=== PATIENT | female | born 1955 | race African-American/Black ===

== ENCOUNTER 2016-05-15 16:18 | Inpatient (IN) | payer MEDICAID ==
[~2016-05-15] VITALS: Ht 157.5 cm; Wt 68.5 kg
[~2016-05-15 16:18] MED LIST: CARV3.1242 PO; FURO-151 PO; INSU3INS6 SUBCUT; SPIR25TA4 PO
[2016-05-15] MEDS ORDERED: FUROSEMIDE 40MG/4ML VIAL IV STA (17:15)
[2016-05-15] MEDS ORDERED: NITROGLYCERIN OINT 1GM/INCH UDPKT TD STA (17:15)
[2016-05-15 17:36] LABS: BASOPHILS % 1.8 % (0.0-2.0); EOSINOPHILS % 1.5 % (0.0-5.0); HEMATOCRIT. 36.2 % (36.0-48.0); HEMOGLOBIN. 11.4 g/dL (12.0-16.0); LYMPHOCYTES % 10.2 % (20.0-50.0); MEAN CORPUSCULAR HEMOGLOBIN 27.1 pg (28.0-32.0); MEAN CORPUSCULAR HGB CONC 31.6 g/dL (31.0-37.0); MEAN CORPUSCULAR VOLUME 85.8 fL (81.0-99.0); MEAN PLATELET VOLUME 8.8 fl (7.4-10.4); MONOCYTES % 9.1 % (2.0-8.0); NEUTROPHILS % 77.4 % (40.0-76.0); PLATELET 443 x1000/uL (130-400); RED BLOOD CELL COUNT 4.21 mill/uL (4.2-5.4); RED CELL DISTRIBUTION WIDTH 17.4 % (11.6-14.6); WHITE BLOOD COUNT 9.6 x1000/uL (4.5-11.0)
[2016-05-15 17:41] LABS: CHLORIDE 97 mEq/L (98-107); INDEX HEMOLYSI 1 (1-3); INDEX ICTERIC 1 (1-4); INDEX LIPEMIC 1 (1-3)
[2016-05-15 17:44] LABS: INR 1.1; PROTHROMBIN TIME 11.7 sec
[2016-05-15 17:47] LABS: ALANINE AMINOTRANSFERASE 34 IU/L (13-61); ANION GAP 12; CALCIUM 8.2 mg/dL (8.5-10.1); CARBON DIOXIDE 32 mEq/L (21-32); UREA NITROGEN BLOOD 17 mg/dL (7-21); eGFR > 60 mL/min (>60)
[2016-05-15 17:52] LABS: NT PRO B-TYPE NATRIURETIC PEP 1499 pg/mL (5-125); TROPONIN I < 0.02 ng/mL (0.00-0.04)
[2016-05-15 18:06] LABS: CLARITY URINE CLEAR (CLEAR); COLOR URINE DARK YELLOW (YELLOW); GLUCOSE URINE 3+ (NEGATIVE); KETONES URINE NEGATIVE (NEGATIVE); LEUKOCYTE ESTERASE URINE NEGATIVE (NEGATIVE); NITRITE URINE NEGATIVE (NEGATIVE); OCCULT BLOOD URINE 2+ (NEGATIVE); PROTEIN URINE 3+ (NEGATIVE); SPECIFIC GRAVITY URINE 1.023 (1.005-1.030)
[2016-05-15 18:19] LABS: BACTERIA URINE TRACE; RBC URINE 0-2 /hpf (0-2); SQUAMOUS EPITHELIAL CELL URINE FEW /lpf (RARE/1+); WBC URINE 0-2 /hpf (0-2)
[2016-05-15] MEDS ORDERED: CEFTRIAXONE 1 G PREMIX 50 ML IV ONE (20:00)
[2016-05-15] MEDS ORDERED: AZITHROMYCIN 500 MG in DEXT 5% WATER 250 ML IV SCH (20:00)
[2016-05-15 22:35] LABS: BG BASE EXCESS 4.6 mmol/L (-2.0-2.0); BG CARBOXYHEMOGLOBIN 1.6 % (0.5-1.5); BG DEOXYHEMOGLOBIN 16.4 % (0.0-5.0); BG FRACTION INSPIRED OXYGEN 21; BG HCO3 ACT 28.9 mmol/L (22.0-26.0); BG METHEMOGLOBIN 0.2 % (0.0-1.5); BG OXYGEN SATURATION 83.3 % (92.0-98.5); BG OXYHEMOGLOBIN 81.8 % (94.0-97.0); BG PCO2 41.7 mmHg (35.0-45.0); BG PH 7.458 (7.350-7.450); BG PO2 45.2 mmHg (75.0-100.0); BG SAMPLE SITE LEFT BRACHIAL; BG TOTAL HEMOGLOBIN 11.9 g/dL (12.0-18.0); BG VENT MODE ROOM AIR
[2016-05-16 00:45] VITALS: BP 134/90
[2016-05-16] MEDS ORDERED: DEXTROSE 50% WATER 50ML SYRINGE IV PRN (01:00)
[2016-05-16 04:00] VITALS: BP 125/78
[2016-05-16 06:57] LABS: BASOPHILS % 1.6 % (0.0-2.0); EOSINOPHILS % 1.6 % (0.0-5.0); HEMATOCRIT. 32.8 % (36.0-48.0); HEMOGLOBIN. 10.3 g/dL (12.0-16.0); MEAN CORPUSCULAR HEMOGLOBIN 26.7 pg (28.0-32.0); MEAN CORPUSCULAR HGB CONC 31.4 g/dL (31.0-37.0); MEAN CORPUSCULAR VOLUME 84.9 fL (81.0-99.0); MONOCYTES % 11.6 % (2.0-8.0); NEUTROPHILS % 72.2 % (40.0-76.0); PLATELET 433 x1000/uL (130-400); RED BLOOD CELL COUNT 3.86 mill/uL (4.2-5.4); RED CELL DISTRIBUTION WIDTH 17.5 % (11.6-14.6); WHITE BLOOD COUNT 8.9 x1000/uL (4.5-11.0)
[2016-05-16] MEDS: BLOOD SUGAR DIAGNOSTIC STRIP TEST SCH ×4 (07:20→21:27)
[2016-05-16 07:28] LABS: CALCIUM 8.2 mg/dL (8.5-10.1); CHLORIDE 98 mEq/L (98-107); INDEX HEMOLYSI 1 (1-3); INDEX ICTERIC 1 (1-4); INDEX LIPEMIC 1 (1-3)
[2016-05-16 07:34] LABS: ALANINE AMINOTRANSFERASE 28 IU/L (13-61); ALBUMIN 1.9 g/dL (3.4-5.0); ANION GAP 12; CARBON DIOXIDE 31 mEq/L (21-32); UREA NITROGEN BLOOD 19 mg/dL (7-21); eGFR > 60 mL/min (>60)
[2016-05-16 08:00] VITALS: BP 161/100
[2016-05-16] MEDS: ASPIRIN 81MG TABLET PO SCH (08:36)
[2016-05-16] MEDS: ENOXAPARIN 40MG/0.4ML SYR SUBCUT SCH (08:38)
[2016-05-16] MEDS ORDERED: POTASSIUM CHLORIDE 10MEQ TABLET SR PO SCH (09:00)
[2016-05-16] MEDS ORDERED: FUROSEMIDE 20MG/2ML VIAL IVP SCH (09:00)
[2016-05-16] MEDS ORDERED: SPIRONOLACTONE 25MG TABLET PO SCH (09:15)
[2016-05-16] MEDS: SPIRONOLACTONE 25MG TABLET PO SCH (10:00)
[2016-05-16 12:00] VITALS: BP 132/92
[2016-05-16] MEDS: INSULIN LISPRO 100 UNITS/ML SUBCUT SCH ×4 (13:00→21:26)
[2016-05-16 14:25] LABS: HEPATITIS B SURFACE ANTIGEN NEGATIVE
[2016-05-16 14:51] LABS: HEPATITIS C VIR.AB 0.16 INDEXVAL (0.00-0.80)
[2016-05-16 14:52] LABS: HEPATITIS B CORE AB IGM NEGATIVE
[2016-05-16 14:54] LABS: HEPATITIS A AB IGM NEGATIVE (NEGATIVE)
[2016-05-16 17:00] VITALS: BP 144/94
[2016-05-16] MEDS: FUROSEMIDE 20MG/2ML VIAL IVP SCH (17:00)
[2016-05-16] MEDS ORDERED: HEPARIN SODIUM 1,000 UNIT/1ML VIAL IV NR (18:00)
[2016-05-16] MEDS: CARVEDILOL 3.125 MG TABLET PO SCH (21:23)
[2016-05-16] MEDS: INSULIN DETEMIR UD 100 UNITS/ML SYR SUBCUT SCH (21:27)
[2016-05-17] VITALS: BP 126/73
[2016-05-17 04:00] VITALS: BP 127/72
[2016-05-17 05:26] LABS: BASOPHILS % 2.2 % (0.0-2.0); EOSINOPHILS % 2.3 % (0.0-5.0); HEMATOCRIT. 33.1 % (36.0-48.0); HEMOGLOBIN. 10.3 g/dL (12.0-16.0); MEAN CORPUSCULAR HEMOGLOBIN 26.6 pg (28.0-32.0); MEAN CORPUSCULAR HGB CONC 31.2 g/dL (31.0-37.0); MEAN CORPUSCULAR VOLUME 85.2 fL (81.0-99.0); MEAN PLATELET VOLUME 8.9 fl (7.4-10.4); NEUTROPHILS % 67.5 % (40.0-76.0); PLATELET 360 x1000/uL (130-400); RED BLOOD CELL COUNT 3.88 mill/uL (4.2-5.4); RED CELL DISTRIBUTION WIDTH 17.6 % (11.6-14.6); WHITE BLOOD COUNT 9.9 x1000/uL (4.5-11.0)
[2016-05-17 05:49] LABS: ANION GAP 14; CALCIUM 8.3 mg/dL (8.5-10.1); CARBON DIOXIDE 29 mEq/L (21-32); CHLORIDE 99 mEq/L (98-107); INDEX HEMOLYSI 1 (1-3); INDEX ICTERIC 1 (1-4); INDEX LIPEMIC 1 (1-3); UREA NITROGEN BLOOD 23 mg/dL (7-21); eGFR > 60 mL/min (>60)
[2016-05-17 05:50] LABS: TROPONIN I 0.04 ng/mL (0.00-0.04)
[2016-05-17] MEDS: BLOOD SUGAR DIAGNOSTIC STRIP TEST SCH ×4 (06:32→21:12)
[2016-05-17] MEDS: INSULIN LISPRO 100 UNITS/ML SUBCUT SCH ×4 (07:44→21:12)
[2016-05-17 07:58] VITALS: BP 125/77
[2016-05-17] MEDS: FUROSEMIDE 20MG/2ML VIAL IVP SCH ×2 (08:56→17:00)
[2016-05-17] MEDS: ENOXAPARIN 40MG/0.4ML SYR SUBCUT SCH (09:00)
[2016-05-17] MEDS: ASPIRIN 81MG TABLET PO SCH (09:00)
[2016-05-17] MEDS: SPIRONOLACTONE 25MG TABLET PO SCH (09:00)
[2016-05-17] MEDS: LISINOPRIL 2.5MG TABLET PO SCH (09:00)
[2016-05-17] MEDS: CARVEDILOL 3.125 MG TABLET PO SCH ×2 (09:00→21:10)
[2016-05-17 12:02] VITALS: BP 126/81
[2016-05-17 16:13] VITALS: BP 146/89
[2016-05-17] MEDS ORDERED: HEPARIN SODIUM 1,000 UNIT/1ML VIAL IV NR (17:15)
[2016-05-17 20:00] VITALS: BP 146/85
[2016-05-17] MEDS: INSULIN DETEMIR UD 100 UNITS/ML SYR SUBCUT SCH (21:12)
[2016-05-18] VITALS (7 sets, daily range): BP systolic 120–161; BP diastolic 70–91
[2016-05-18 06:00] LABS: BASOPHILS % 1.5 % (0.0-2.0); EOSINOPHILS % 2.2 % (0.0-5.0); HEMATOCRIT. 33.7 % (36.0-48.0); HEMOGLOBIN. 10.8 g/dL (12.0-16.0); LYMPHOCYTES % 15.2 % (20.0-50.0); MEAN CORPUSCULAR HEMOGLOBIN 27.1 pg (28.0-32.0); MEAN CORPUSCULAR VOLUME 84.7 fL (81.0-99.0); NEUTROPHILS % 69.1 % (40.0-76.0); PLATELET 309 x1000/uL (130-400); RED BLOOD CELL COUNT 3.98 mill/uL (4.2-5.4); RED CELL DISTRIBUTION WIDTH 17.8 % (11.6-14.6); WHITE BLOOD COUNT 8.7 x1000/uL (4.5-11.0)
[2016-05-18] MEDS: BLOOD SUGAR DIAGNOSTIC STRIP TEST SCH ×4 (06:32→21:11)
[2016-05-18 06:33] LABS: CHLORIDE 99 mEq/L (98-107); INDEX HEMOLYSI 1 (1-3); INDEX ICTERIC 1 (1-4); INDEX LIPEMIC 1 (1-3)
[2016-05-18 06:43] LABS: ANION GAP 14; CALCIUM 8.4 mg/dL (8.5-10.1); CARBON DIOXIDE 27 mEq/L (21-32); UREA NITROGEN BLOOD 28 mg/dL (7-21); eGFR > 60 mL/min (>60)
[2016-05-18] MEDS: INSULIN LISPRO 100 UNITS/ML SUBCUT SCH ×4 (07:50→21:10)
[2016-05-18 09:09] LABS: INR 1.1; PROTHROMBIN TIME 11.6 sec
[2016-05-18] MEDS: FUROSEMIDE 20MG/2ML VIAL IVP SCH ×2 (09:11→18:24)
[2016-05-18] MEDS: SPIRONOLACTONE 25MG TABLET PO SCH (09:46)
[2016-05-18] MEDS: LISINOPRIL 2.5MG TABLET PO SCH (09:46)
[2016-05-18] MEDS: CARVEDILOL 3.125 MG TABLET PO SCH ×2 (09:46→21:08)
[2016-05-18] MEDS: ENOXAPARIN 40MG/0.4ML SYR SUBCUT SCH (09:48)
[2016-05-18] MEDS ORDERED: HEPARIN SODIUM 1,000 UNIT/1ML VIAL IV NR (15:22)
[2016-05-18] MEDS: INSULIN DETEMIR UD 100 UNITS/ML SYR SUBCUT SCH (21:11)
[2016-05-19] VITALS: BP 114/57
[2016-05-19 04:00] VITALS: BP 113/71
[2016-05-19] MEDS: BLOOD SUGAR DIAGNOSTIC STRIP TEST SCH ×4 (06:20→21:38)
[2016-05-19 06:32] LABS: BASOPHILS % 1.9 % (0.0-2.0); EOSINOPHILS % 2.4 % (0.0-5.0); HEMATOCRIT. 30.8 % (36.0-48.0); HEMOGLOBIN. 9.8 g/dL (12.0-16.0); LYMPHOCYTES % 15.9 % (20.0-50.0); MEAN CORPUSCULAR HEMOGLOBIN 27.2 pg (28.0-32.0); MEAN CORPUSCULAR HGB CONC 31.8 g/dL (31.0-37.0); MEAN CORPUSCULAR VOLUME 85.5 fL (81.0-99.0); MEAN PLATELET VOLUME 9.2 fl (7.4-10.4); NEUTROPHILS % 66.8 % (40.0-76.0); PLATELET 233 x1000/uL (130-400); RED CELL DISTRIBUTION WIDTH 17.7 % (11.6-14.6); WHITE BLOOD COUNT 8.8 x1000/uL (4.5-11.0)
[2016-05-19 07:07] LABS: CHLORIDE 101 mEq/L (98-107); INDEX HEMOLYSI 1 (1-3); INDEX ICTERIC 1 (1-4); INDEX LIPEMIC 1 (1-3)
[2016-05-19 07:16] LABS: ANION GAP 12; CALCIUM 8.1 mg/dL (8.5-10.1); CARBON DIOXIDE 29 mEq/L (21-32); UREA NITROGEN BLOOD 27 mg/dL (7-21); eGFR > 60 mL/min (>60)
[2016-05-19] MEDS: INSULIN LISPRO 100 UNITS/ML SUBCUT SCH ×4 (07:50→21:37)
[2016-05-19 08:00] VITALS: BP 135/77
[2016-05-19] MEDS: ENOXAPARIN 40MG/0.4ML SYR SUBCUT SCH (08:47)
[2016-05-19] MEDS: FUROSEMIDE 20MG/2ML VIAL IVP SCH ×2 (08:52→18:02)
[2016-05-19] MEDS: SPIRONOLACTONE 25MG TABLET PO SCH (08:59)
[2016-05-19] MEDS: LISINOPRIL 2.5MG TABLET PO SCH (09:00)
[2016-05-19] MEDS: CARVEDILOL 3.125 MG TABLET PO SCH ×2 (09:00→21:35)
[2016-05-19] MEDS ORDERED: HEPARIN SODIUM 1,000 UNIT/1ML VIAL IV NR (10:15)
[2016-05-19 12:00] VITALS: BP 128/79
[2016-05-19 14:13] LABS: ANTI-NUCLEAR ANTIBODIES DIRECT Negative (Negative)
[2016-05-19 16:00] VITALS: BP 126/80
[2016-05-19 20:00] VITALS: BP 148/81
[2016-05-19] MEDS: INSULIN DETEMIR UD 100 UNITS/ML SYR SUBCUT SCH (21:38)
[2016-05-20] VITALS (7 sets, daily range): BP systolic 97–134; BP diastolic 55–91
[2016-05-20] MEDS: BLOOD SUGAR DIAGNOSTIC STRIP TEST SCH ×4 (07:20→21:14)
[2016-05-20] MEDS: SPIRONOLACTONE 25MG TABLET PO SCH (09:48)
[2016-05-20] MEDS: FUROSEMIDE 20MG/2ML VIAL IVP SCH ×2 (09:48→17:00)
[2016-05-20] MEDS: CARVEDILOL 3.125 MG TABLET PO SCH ×2 (09:49→21:13)
[2016-05-20] MEDS: LISINOPRIL 2.5MG TABLET PO SCH (09:49)
[2016-05-20] MEDS: ENOXAPARIN 40MG/0.4ML SYR SUBCUT SCH (09:49)
[2016-05-20] MEDS: INSULIN LISPRO 100 UNITS/ML SUBCUT SCH ×4 (09:50→21:13)
[2016-05-20] MEDS: INSULIN DETEMIR UD 100 UNITS/ML SYR SUBCUT SCH (21:13)
[2016-05-21 04:00] VITALS: BP 120/75
[2016-05-21 05:39] LABS: BASOPHILS % 1.8 % (0.0-2.0); EOSINOPHILS % 2.1 % (0.0-5.0); HEMATOCRIT. 32.1 % (36.0-48.0); HEMOGLOBIN. 10.1 g/dL (12.0-16.0); LYMPHOCYTES % 16.7 % (20.0-50.0); MEAN CORPUSCULAR HEMOGLOBIN 26.7 pg (28.0-32.0); MEAN CORPUSCULAR HGB CONC 31.5 g/dL (31.0-37.0); MEAN CORPUSCULAR VOLUME 84.7 fL (81.0-99.0); MEAN PLATELET VOLUME 9.6 fl (7.4-10.4); MONOCYTES % 12.2 % (2.0-8.0); NEUTROPHILS % 67.2 % (40.0-76.0); PLATELET 179 x1000/uL (130-400); RED BLOOD CELL COUNT 3.79 mill/uL (4.2-5.4); RED CELL DISTRIBUTION WIDTH 17.5 % (11.6-14.6); WHITE BLOOD COUNT 9.7 x1000/uL (4.5-11.0)
[2016-05-21 06:05] LABS: ANION GAP 10; CALCIUM 7.7 mg/dL (8.5-10.1); CARBON DIOXIDE 28 mEq/L (21-32); CHLORIDE 103 mEq/L (98-107); INDEX HEMOLYSI 1 (1-3); INDEX ICTERIC 1 (1-4); INDEX LIPEMIC 1 (1-3); MAGNESIUM 1.9 mg/dL (1.8-2.4); UREA NITROGEN BLOOD 31 mg/dL (7-21); eGFR > 60 mL/min (>60)
[2016-05-21] MEDS: BLOOD SUGAR DIAGNOSTIC STRIP TEST SCH ×4 (07:03→21:19)
[2016-05-21 07:55] LABS: HEPATITIS B SURFACE ANTIGEN NEGATIVE
[2016-05-21 08:23] LABS: HEPATITIS C VIR.AB < 0.02 INDEXVAL (0.00-0.80)
[2016-05-21] MEDS: LISINOPRIL 2.5MG TABLET PO SCH (08:37)
[2016-05-21] MEDS: SPIRONOLACTONE 25MG TABLET PO SCH (08:38)
[2016-05-21] MEDS: CARVEDILOL 3.125 MG TABLET PO SCH ×2 (08:38→21:49)
[2016-05-21] MEDS: FUROSEMIDE 20MG/2ML VIAL IVP SCH ×2 (08:38→17:00)
[2016-05-21] MEDS: ENOXAPARIN 40MG/0.4ML SYR SUBCUT SCH (08:39)
[2016-05-21] MEDS: INSULIN LISPRO 100 UNITS/ML SUBCUT SCH ×4 (08:40→21:49)
[2016-05-21 09:00] VITALS: BP 128/88
[2016-05-21 12:08] VITALS: BP 138/83
[2016-05-21 13:13] LABS: A/G RATIO 0.6 (0.7-1.7); ALBUMIN 2.4 g/dL (2.9-4.4); ALPHA-1-GLOBULIN 0.3 g/dL (0.0-0.4); ALPHA-2-GLOBULIN 0.7 g/dL (0.4-1.0); BETA GLOBULIN 0.9 g/dL (0.7-1.3); GAMMA GLOBULINS 2.1 g/dL (0.4-1.8); M-SPIKE 0.3 g/dL (Not Observed); TOTAL PROTEIN SERUM 6.4 g/dL (6.0-8.5)
[2016-05-21 16:05] VITALS: BP 143/80
[2016-05-21 16:14] LABS: INR 1.1; PROTHROMBIN TIME 11.2 sec
[2016-05-21 20:00] VITALS: BP 140/79
[2016-05-21] MEDS: INSULIN DETEMIR UD 100 UNITS/ML SYR SUBCUT SCH (21:49)
[2016-05-22] VITALS (11 sets, daily range): BP systolic 116–151; BP diastolic 73–97
[2016-05-22 06:19] LABS: COMPLEMENT C3 240 mg/dL (82-167); COMPLEMENT C4 28 mg/dL (14-44)
[2016-05-22 06:50] LABS: ANION GAP 11; CALCIUM 8.2 mg/dL (8.5-10.1); CARBON DIOXIDE 28 mEq/L (21-32); CHLORIDE 102 mEq/L (98-107); INDEX HEMOLYSI 1 (1-3); INDEX ICTERIC 1 (1-4); INDEX LIPEMIC 1 (1-3); UREA NITROGEN BLOOD 33 mg/dL (7-21); eGFR > 60 mL/min (>60)
[2016-05-22 07:02] LABS: EOSINOPHILS % 2.5 % (0.0-5.0); HEMATOCRIT. 32.1 % (36.0-48.0); HEMOGLOBIN. 10.5 g/dL (12.0-16.0); LYMPHOCYTES % 19.4 % (20.0-50.0); MEAN CORPUSCULAR HEMOGLOBIN 27.7 pg (28.0-32.0); MEAN CORPUSCULAR HGB CONC 32.7 g/dL (31.0-37.0); MEAN CORPUSCULAR VOLUME 84.9 fL (81.0-99.0); MEAN PLATELET VOLUME 10.3 fl (7.4-10.4); MONOCYTES % 14.3 % (2.0-8.0); NEUTROPHILS % 61.8 % (40.0-76.0); PLATELET 191 x1000/uL (130-400); RED BLOOD CELL COUNT 3.78 mill/uL (4.2-5.4); RED CELL DISTRIBUTION WIDTH 17.6 % (11.6-14.6); WHITE BLOOD COUNT 8.4 x1000/uL (4.5-11.0)
[2016-05-22] MEDS: BLOOD SUGAR DIAGNOSTIC STRIP TEST SCH ×4 (07:20→21:52)
[2016-05-22] MEDS: INSULIN LISPRO 100 UNITS/ML SUBCUT SCH ×4 (07:50→22:26)
[2016-05-22] MEDS ORDERED: FENTANYL CITRATE/PF 50MCG/ML 2ML VIAL IV ONE (09:45)
[2016-05-22] MEDS ORDERED: CEFAZOLIN 1000MG PREMIX 50 ML IV ONE (09:45)
[2016-05-22] MEDS: FUROSEMIDE 20MG/2ML VIAL IVP SCH (10:32)
[2016-05-22] MEDS: LISINOPRIL 2.5MG TABLET PO SCH (10:32)
[2016-05-22] MEDS: CARVEDILOL 3.125 MG TABLET PO SCH (10:33)
[2016-05-22] MEDS: SPIRONOLACTONE 25MG TABLET PO SCH (10:34)
[2016-05-22] MEDS ORDERED: HEPARIN SODIUM 1,000 UNIT/1ML VIAL IV NR (14:00)
[2016-05-22] MEDS: CARVEDILOL 6.25 MG TABLET PO SCH (21:48)
[2016-05-22] MEDS: FUROSEMIDE 40MG TABLET PO SCH (21:48)
[2016-05-22] MEDS: INSULIN DETEMIR UD 100 UNITS/ML SYR SUBCUT SCH (21:52)
[2016-05-23] VITALS: BP 109/61
[2016-05-23 04:00] VITALS: BP 120/76
[2016-05-23] MEDS: BLOOD SUGAR DIAGNOSTIC STRIP TEST SCH ×2 (07:36→12:11)
[2016-05-23 08:05] VITALS: BP 130/88
[2016-05-23] MEDS: INSULIN LISPRO 100 UNITS/ML SUBCUT SCH ×2 (08:55→12:11)
[2016-05-23] MEDS: LISINOPRIL 2.5MG TABLET PO SCH (08:57)
[2016-05-23] MEDS: SPIRONOLACTONE 25MG TABLET PO SCH (08:57)
[2016-05-23] MEDS: FUROSEMIDE 40MG TABLET PO SCH (08:57)
[2016-05-23] MEDS: CARVEDILOL 6.25 MG TABLET PO SCH (08:57)
[2016-05-23 09:49] VITALS: BP 130/88
[2016-05-23 12:00] VITALS: BP 122/93
[2016-05-23 16:00] VITALS: BP 164/81
== END 2016-05-23 13:15 | disposition home or self-care (01) | DRG 167 ==
LOC: ER 17:19 → 6WST 22:12
PROVIDERS: ADMIT Hospitalist; ATTEND Hospitalist
PROC: 02HV33Z Insertion of Infusion Device into Superior Vena Cava, Percutaneous Approach (ICD-10-PCS; principal; 2016-05-16)
PROC: B5181ZA Fluoroscopy of Superior Vena Cava using Low Osmolar Contrast, Guidance (ICD-10-PCS; 2016-05-16)
PROC: B548ZZA Ultrasonography of Superior Vena Cava, Guidance (ICD-10-PCS; 2016-05-16)
PROC: 5A1D60Z (ICD-10-PCS; 2016-05-16)
PROC: 02H633Z Insertion of Infusion Device into Right Atrium, Percutaneous Approach (ICD-10-PCS; 2016-05-22)
PROC: B2141ZZ Fluoroscopy of Right Heart using Low Osmolar Contrast (ICD-10-PCS; 2016-05-22)
PROC: B246ZZZ Ultrasonography of Right and Left Heart (ICD-10-PCS; 2016-05-22)
DX: I11.0 Hypertensive heart disease with heart failure (principal); J96.01 Acute respiratory failure with hypoxia; E43 Unspecified severe protein-calorie malnutrition; E87.3 Alkalosis; E88.09 Other disorders of plasma-protein metabolism, not elsewhere classified; I42.0 Dilated cardiomyopathy; E11.65 Type 2 diabetes mellitus with hyperglycemia; I27.2 Other secondary pulmonary hypertension; I50.23 Acute on chronic systolic (congestive) heart failure; E87.5 Hyperkalemia; I49.3 Ventricular premature depolarization; J44.9 Chronic obstructive pulmonary disease, unspecified; M19.90 Unspecified osteoarthritis, unspecified site; Z79.4 Long term (current) use of insulin; Z87.441 Personal history of nephrotic syndrome; Z87.891 Personal history of nicotine dependence; Z68.27 Body mass index [BMI] 27.0-27.9, adult
CPT/HCPCS: 36415; 36558; 36569; 36589; 36600; 51702; 71010; 76937; 77001; 80048; 80053; 80061; 81001; 82375; 82570; 82805; 82962; 83036; 83735; 83880; 84155; 84156; 84165; 84484; 85025; 85610; 85730; 86038; 86160; 86705; 86709; 86803; 87040; 87340; 93005; 93970; 96365; 96368; 96375; 99291; C1750; C1752; C1893; J0456; J0696; J1644; J1650; J1815; J1940; J7030; J7040; J7050; J7060

== ENCOUNTER 2016-06-09 12:12 | Emergency (ER) | payer MEDICAID ==
[~2016-06-09] VITALS: Ht 157.5 cm; Wt 60.0 kg
[2016-06-09 13:33] LABS: EOSINOPHILS % 1.3 % (0.0-5.0); HEMATOCRIT. 41.5 % (36.0-48.0); HEMOGLOBIN. 12.6 g/dL (12.0-16.0); LYMPHOCYTES % 14.5 % (20.0-50.0); MEAN CORPUSCULAR HEMOGLOBIN 27.1 pg (28.0-32.0); MEAN CORPUSCULAR HGB CONC 30.3 g/dL (31.0-37.0); MEAN CORPUSCULAR VOLUME 89.5 fL (81.0-99.0); MEAN PLATELET VOLUME 9.8 fl (7.4-10.4); MONOCYTES % 11.7 % (2.0-8.0); NEUTROPHILS % 70.5 % (40.0-76.0); PLATELET 219 x1000/uL (130-400); RED BLOOD CELL COUNT 4.64 mill/uL (4.2-5.4); RED CELL DISTRIBUTION WIDTH 18.9 % (11.6-14.6); WHITE BLOOD COUNT 8.2 x1000/uL (4.5-11.0)
[2016-06-09 13:38] LABS: CHLORIDE 84 mEq/L (98-107); DIFFERENTIAL COMMENT 1; INDEX HEMOLYSI 1 (1-3); INDEX ICTERIC 1 (1-4); INDEX LIPEMIC 1 (1-3)
[2016-06-09 13:39] LABS: PROTHROMBIN TIME 10.8 sec
[2016-06-09 13:46] LABS: ALANINE AMINOTRANSFERASE 41 IU/L (13-61); ALBUMIN 2.7 g/dL (3.4-5.0); ANION GAP 13; CARBON DIOXIDE 30 mEq/L (21-32); UREA NITROGEN BLOOD 20 mg/dL (7-21); eGFR > 60 mL/min (>60)
[2016-06-09 13:48] VITALS: BP 139/108
[2016-06-09] MEDS ORDERED: INSULIN REGULAR (HUMULIN R) 300UNITS/3ML SUBCUT NR (14:15)
== END 2016-06-09 14:57 | disposition left against medical advice (07) ==
LOC: ER 12:12
DX: E87.1 Hypo-osmolality and hyponatremia (principal); I12.9 Hypertensive chronic kidney disease with stage 1 through stage 4 chronic kidney disease, or unspecified chronic kidney disease; N18.9 Chronic kidney disease, unspecified; E11.65 Type 2 diabetes mellitus with hyperglycemia; T85.9XXA Unspecified complication of internal prosthetic device, implant and graft, initial encounter; M19.90 Unspecified osteoarthritis, unspecified site; N18.6 End stage renal disease; I25.10 Atherosclerotic heart disease of native coronary artery without angina pectoris; Z99.2 Dependence on renal dialysis; Z79.4 Long term (current) use of insulin
CPT/HCPCS: 36415; 80053; 85025; 85610; 99284; J1815

== ENCOUNTER 2016-06-30 05:03 | Emergency (ER) | payer MEDICAID ==
[~2016-06-30] VITALS: Ht 157.5 cm; Wt 57.0 kg
[2016-06-30 05:50] LABS: BASOPHILS % 0.6 % (0.0-2.0); EOSINOPHILS % 3.4 % (0.0-5.0); HEMATOCRIT. 41.9 % (36.0-48.0); HEMOGLOBIN. 13.9 g/dL (12.0-16.0); LYMPHOCYTES % 29.2 % (20.0-50.0); MEAN CORPUSCULAR HEMOGLOBIN 27.4 pg (28.0-32.0); MEAN CORPUSCULAR HGB CONC 33.1 g/dL (31.0-37.0); MEAN CORPUSCULAR VOLUME 82.8 fL (81.0-99.0); MEAN PLATELET VOLUME 9.5 fl (7.4-10.4); MONOCYTES % 9.1 % (2.0-8.0); NEUTROPHILS % 57.7 % (40.0-76.0); PLATELET 267 x1000/uL (130-400); RED BLOOD CELL COUNT 5.06 mill/uL (4.2-5.4); RED CELL DISTRIBUTION WIDTH 18.7 % (11.6-14.6); WHITE BLOOD COUNT 9.1 x1000/uL (4.5-11.0)
[2016-06-30 05:54] LABS: PROTHROMBIN TIME 10.4 sec
[2016-06-30 06:01] LABS: ALANINE AMINOTRANSFERASE 77 IU/L (13-61); ANION GAP 15; CARBON DIOXIDE 26 mEq/L (21-32); CHLORIDE 92 mEq/L (98-107); INDEX HEMOLYSI 1 (1-3); INDEX ICTERIC 1 (1-4); INDEX LIPEMIC 1 (1-3); UREA NITROGEN BLOOD 23 mg/dL (7-21); eGFR > 60 mL/min (>60)
[2016-06-30] MEDS ORDERED: INSULIN REGULAR (HUMULIN R) 300UNITS/3ML IV ONE (06:45)
[2016-06-30 08:47] VITALS: BP 124/86
== END 2016-06-30 09:22 | disposition left against medical advice (07) ==
LOC: ER 05:52
DX: Z45.09 Encounter for adjustment and management of other cardiac device (principal); I50.9 Heart failure, unspecified; E11.9 Type 2 diabetes mellitus without complications; Z79.4 Long term (current) use of insulin; Z98.890 Other specified postprocedural states
CPT/HCPCS: 36415; 36589; 80053; 82962; 85025; 85610; 96374; 99285; J1815; Z7610